=== PATIENT | male | born 1985 | race Caucasian/White ===

== ENCOUNTER 2024-12-24 17:04 | Emergency (ER) | payer OTHER ==
[~2024-12-24] VITALS: Ht 177.8 cm; Wt 92.2 kg
--- NOTE | 2024-12-24 17:40 | ELECTROCARDIOGRAPH REPORT ---
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
--- NOTE | 2024-12-24 17:41 | Physician Documentation ---
History of Present Illness ~ Chief Complaint: Chest Pain Stated Complaint: LETHARGIC Time Seen by MD: 19:20 HPI Patient presents to the emergency room with unusual feeling since he woke up this morning. He does note that he went to bed last night and did toss and turn which is very unusual for him and it took him a proximally 45 minutes to fall asleep. This morning when he woke up he had an unusual hot feeling in his neck and a feeling of chest tightness and he states it felt almost like a panic attack however he had this disc associated feeling with his thought process. Since that time symptoms have improved but have persisted and he looked it up on the computer and spoke with his significant other who directed him to go to the emergency room to be evaluated. He denies any chest pain but does describe tightness. She denies one-sided leg pain. No new medications or supplements. Medication Reconciliation Allergies: Coded Allergies: No Known Allergies (Unverified , 12/24/24) Scheduled Buprenorphine Hcl/Naloxone Hcl (Suboxone 4 Mg-1 Mg Sl Film), 0.25 STRIP SL ONCE, (Reported) Trazodone HCl (Trazodone HCl), 1 TAB PO HS, (Reported) Review of Systems ROS All review of systems negative except as per HPI Physical Exam Vital Signs: Temperature: 99.9, Source: Temporal, Heart Rate: 113, Respiratory Rate: 18, BP: 146/95, Pulse Oximetry: 96, Weight: 92.200 Oxygen Flow Rate: 0 Physical Exam General: Patient is awake, alert, oriented x4 in no acute distress and well appearing.~ Head: Normocephalic and atraumatic. Eyes: Conjunctival normal. EOMI. PERRL. ENT: Mucous membranes moist. Neck: Supple, trachea is midline. Chest: Clear to auscultation bilaterally without rales, rhonchi, or wheezes. There is no accessory muscle use or retractions. Cardiac: Heart rate 86 and regular without murmurs, gallops, or rubs. Abd: Soft, nondistended, nontender, with normoactive bowel sounds. No guarding, rebound, or rigidity. Extremities: Normal strength. Normal range of motion. No deformities or edema. No calf tenderness to palpation Progress Results/Orders Results/Orders Vital Signs 12/24/24 12/24/24 12/24/24 12/24/24 17:23 18:26 19:45 19:47 Temp 99.9 Pulse 113 86 Resp 18 16 15 B/P (MAP) 146/95 144/80 (101) Pulse Ox 96 99 99 O2 Delivery Room Air* O2 Flow Rate 0 0 FiO2 21 Laboratory Tests Test 12/24/24 17:49 12/24/24 18:38 12/24/24 19:23 CBC Comment Sodium Level 138 Potassium Level 3.6 Chloride Level 103 Carbon Dioxide Level 27.6 Anion Gap 7 L Blood Urea Nitrogen 20 H Creatinine 1.36 H Estimated GFR/1.73 m2 58 BUN/Creatinine Ratio 14.7 Glucose Level 133 H Calcium Level 8.5 Troponin I High Sensitivity 6 6 Pro-B-Type Natriuretic Peptide < 30 Albumin 3.8 Chemistry Comments White Blood Count 8.6 Red Blood Count 5.18 Hemoglobin 15.1 Hematocrit 45.4 Mean Corpuscular Volume 87.6 Mean Corpuscular Hemoglobin 29.2 Mean Corpuscular Hemoglobin Concent 33.3 Red Cell Distribution Width 14.2 Platelet Count 233 Mean Platelet Volume 8.4 Neutrophils (%) (Auto) 68.5 Lymphocytes (%) (Auto) 16.6 L Monocytes (%) (Auto) 9.9 Eosinophils (%) (Auto) 4.3 Basophils (%) (Auto) 0.7 Neutrophils # (Auto) 5.9 Lymphocytes # (Auto) 1.4 Monocytes # (Auto) 0.9 Eosinophils # (Auto) 0.4 Basophils # (Auto) 0.1 Troponin I High Sens Percent Delta 0 Troponin I Hi Sens Absolute Change 0 EKG/XRAY/CT/US/VASC/MRI EKG : Additional Comment EKG interpreted by myself shows time of 1735, rate 105, sinus tachycardia, normal axis, abnormal T-waves in anterior leads without reciprocal changes. Chest X-Ray : Additional Comments Exam: CHEST,SINGLE VIEW CHEST RADIOGRAPH Indication: CP Technique: Single frontal view of the chest was obtained COMPARISON: None FINDINGS: Lines and Tubes: None Lungs: Clear Pleura: No effusion. No pneumothorax. Cardiomediastinal contours: Unremarkable Bones: Unremarkable IMPRESSION: 1. No acute disease. Medical Decision Making Findings Patient presents to the emergency room with chest tightness and unusual feeling as per HPI. Patient does have history of anxiety. Differential diagnosis includes but not limited to ACS, pulmonary embolism, anxiety, cardiac arrhythmia therefore emergent labs and imaging indicated. Chest x-ray is reassuring as his EKG. Workup is reassuring including troponins negative x2. No calf tenderness, no hypoxia and tachycardia upon arrival has resolved and he had not feel he requires investigation into possible pulmonary embolism or aortic pathology. I suspect patient is suffering from some degree of anxiety. He has been instructed to follow up with his doctor. Patient with heart score of 0 Departure Disposition: 01 HOME / SELF CARE / HOMELESS Impression: Primary Impression: Chest pain Condition: Stable Discharge Instructions: Nonspecific Chest Pain, Adult Additional Instructions: He needs to follow up with your doctor. Your kidney function isn't as strong as most Meniere age. Double your water consumption. Refrain from NSAID use like ibuprofen and a leave and have these labs rechecked by your primary care doctor. Unknown cause for your symptoms today. All workup including cardiologic workup was reassuring. Referrals: NO PRIMARY CARE PROVIDER (PCP) Additional Comment Medical Screen Exam History: This is a 39-year-old male who presents with sternal nonradiating chest pressure described as pressure onset this morning upon waking, patient reports he had associated nausea and vomiting, patient additionally reports it feeling of lightheadedness and tunnel vision. Reports symptoms have decreased though still experiencing chest tightness and had in his. Exam: VITALS: Reviewed and as above. GENERAL: Alert, nontoxic appearing, no apparent distress. RESPIRATORY: No increased work of breathing, no respiratory distress, speaking in full clear sentences MSE performed in triage and patient returned to ED lobby by nursing staff to await available ED room, ACS workup initiated by nursing staff per protocol The note accurately reflects work and decisions made by me.ANTOINETTE Stone 12/24/24 17:41 Signature Scribe Signature: No scribe Attestation: The note accurately reflects work and decisions made by me.Hua Granda MD 12/24/24 20:04 DANIEL GARCIA Dec 24, 2024 17:41 HUA GRANDA MD Dec 24, 2024 20:00
--- NOTE | 2024-12-24 17:58 | RADIOLOGY REPORT ---
CHEST RADIOGRAPH Indication: CP Technique: Single frontal view of the chest was obtained COMPARISON: None FINDINGS: Lines and Tubes: None Lungs: Clear Pleura: No effusion. No pneumothorax. Cardiomediastinal contours: Unremarkable Bones: Unremarkable IMPRESSION: 1. No acute disease.
[2024-12-24 18:34] LABS: ALBUMIN 3.8 G/DL (3.4-5.0); ANION GAP 7 (8-16); BLOOD UREA NITROGEN 20 MG/DL (7-18); BUN/CREATININE RATIO 14.7 (10.0-20.0); CALCIUM 8.5 MG/DL (8.5-10.1); CHLORIDE 103 MMOL/L (99-107); CREATININE 1.36 MG/DL (0.60-1.10); GLUCOSE 133 MG/DL (70-104); POTASSIUM 3.6 MMOL/L (3.5-5.1); PRO BRAIN NATRIURETIC PEPTIDE < 30 PG/ML (0-125); SODIUM 138 MMOL/L (135-145); TOTAL CARBON DIOXIDE 27.6 MMOL/L (24-32); eCRCL 75 ML/MIN; eGFR 58 ML/MIN
[2024-12-24 19:26] LABS: BASOPHILS # (AUTO) 0.1 X10'3 (0-0.2); BASOPHILS % (AUTO) 0.7 % (0-1); EOSINOPHILS # (AUTO) 0.4 X10'3 (0-0.9); EOSINOPHILS % (AUTO) 4.3 % (0-6); HEMATOCRIT 45.4 % (42.0-52.0); HEMOGLOBIN 15.1 g/dl (14.0-17.9); LYMPHOCYTES # (AUTO) 1.4 X10'3 (1.1-4.8); LYMPHOCYTES % (AUTO) 16.6 % (21-51); MEAN CORPUSCULAR HEMOGLOBIN 29.2 PG (27.0-31.0); MEAN CORPUSCULAR HGB CONC 33.3 g/dL (33.0-36.5); MEAN CORPUSCULAR VOLUME 87.6 FL (78-98); MEAN PLATELET VOLUME 8.4 FL (7.4-10.4); MONOCYTES # (AUTO) 0.9 X10'3 (0-0.9); MONOCYTES % (AUTO) 9.9 % (2-12); NEUTROPHILS # (AUTO) 5.9 X10'3 (1.8-7.7); NEUTROPHILS % (AUTO) 68.5 % (42-75); PLATELET COUNT 233 X10'3 (140-440); RED BLOOD COUNT 5.18 X10'6 (4.70-6.10); RED CELL DISTRIBUTION WIDTH 14.2 % (11.5-14.5); WHITE BLOOD COUNT 8.6 X10'3 (4.5-11.0)
[2024-12-24] MEDS ORDERED: BUPR1FIL5 SL (19:46)
[2024-12-24] MEDS ORDERED: TRAZ-251 PO (19:46)
[2024-12-24 20:25] VITALS: BP 133/73; PULSE 93; RESP 12; TEMP 98.7; O2SAT 99
== END 2024-12-24 20:18 | disposition home or self-care (01) ==
LOC: ER 17:06
DX: R07.89 Other chest pain (principal); R11.2 Nausea with vomiting, unspecified; R42 Dizziness and giddiness; R06.02 Shortness of breath
CPT/HCPCS: 36415; 71045; 80048; 83880; 84484; 85025; 93005; 99285

== ENCOUNTER 2025-02-16 13:15 | Emergency (ER) | payer OTHER ==
[~2025-02-16] VITALS: Ht 177.8 cm; Wt 91.7 kg
[~2025-02-16 13:15] MED LIST: BUPR1FIL5 SL; TRAZ-251 PO
[2025-02-16 13:40] VITALS: TEMP 97.8
--- NOTE | 2025-02-16 13:46 | ELECTROCARDIOGRAPH REPORT ---
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
[2025-02-16 13:56] LABS: MEAN PLATELET VOLUME 7.3 FL (7.4-10.4); RED CELL DISTRIBUTION WIDTH 13.5 % (11.5-14.5)
--- NOTE | 2025-02-16 14:09 | RADIOLOGY REPORT ---
AP portable chest CLINICAL INDICATION: CP Comparison: 12/24/2024 FINDINGS: Heart size is normal. No infiltrates or effusions. No bony thoracic abnormalities. IMPRESSION: 1. No acute cardiopulmonary pathology
[2025-02-16 14:19] LABS: CREATININE 0.90 MG/DL (0.60-1.10); PRO BRAIN NATRIURETIC PEPTIDE < 30 PG/ML (0-125); TOTAL CARBON DIOXIDE 26.1 MMOL/L (24-32); eCRCL 113 ML/MIN; eGFR > 90 ML/MIN
--- NOTE | 2025-02-16 16:02 | Physician Documentation ---
History of Present Illness ~ Chief Complaint: Anxiety Stated Complaint: MEDICATION INTERACTION Time Seen by MD: 13:53 HPI 39-year-old male presents to the ED with a complaint of anxiety after taking trazodone in another supplement yesterday evening. He states that he lost his mom the year ago and has increased anxiety in his recent history of panic attacks. Denies any SI HI but states he feels like his heart is racing for unexplained reasons he has also had increased concerns about his health. Day of Onset: Feb 16, 2025 Medication Reconciliation Allergies: Coded Allergies: No Known Allergies (Unverified , 02/16/25) Scheduled Buprenorphine Hcl/Naloxone Hcl (Suboxone 4 Mg-1 Mg Sl Film), 0.25 STRIP SL ONCE, (Reported) Hydroxyzine Hcl* (Atarax*), 1 TAB PO Q8H Trazodone HCl (Trazodone HCl), 1 TAB PO HS, (Reported) Review of Systems All Other Systems at this time: Reviewed and Negative ROS As stated above in the HPI, otherwise all systems are reviewed and negative. Physical Exam Vital Signs: Temperature: 97.8, Source: Temporal, Heart Rate: 105, Respiratory Rate: 18, BP: 147/95, Pulse Oximetry: 97, Weight: 91.700 Physical Exam General: Alert, no apparent distress. Extremities: Normal range of motion, no deformity. Neurologic: Oriented x4. Psychiatric: Patient is anxious appearing Skin: Normal color, warm and dry. No edema, no ecchymosis. Progress Results/Orders Results/Orders Orders - PRABHU JO AUDIT CONSULTANT Chest,Single View (02/16/25 13:40) Monitor (02/16/25 13:40) Saline Lock (02/16/25 13:40) Oxygen (02/16/25 13:40) Completed Orders - PRABHU JO AUDIT CONSULTANT Chest,Single View (02/16/25 13:40) Cbc/Diff (02/16/25 13:40) BMP (02/16/25 13:40) PBNP (02/16/25 13:40) Electrocardiogram (02/16/25 13:40) Hs Troponin I W Calculations (02/16/25 13:40) Hs Troponin I W Calculations (02/16/25 15:40) Diazepam Tablet (Valium Tablet) (02/16/25 16:00) Vital Signs 02/16/25 02/16/25 13:40 16:50 Temp 97.8 Pulse 105 99 Resp 18 18 B/P (MAP) 147/95 155/90 Pulse Ox 97 98 Laboratory Tests Test 02/16/25 13:48 02/16/25 15:53 White Blood Count 10.5 Red Blood Count 5.65 Hemoglobin 16.8 Hematocrit 49.2 Mean Corpuscular Volume 87.0 Mean Corpuscular Hemoglobin 29.6 Mean Corpuscular Hemoglobin Concent 34.1 Red Cell Distribution Width 13.5 Platelet Count 249 Mean Platelet Volume 7.3 L Neutrophils (%) (Auto) 85.3 H Lymphocytes (%) (Auto) 9.5 L Monocytes (%) (Auto) 4.5 Eosinophils (%) (Auto) 0.3 Basophils (%) (Auto) 0.4 Neutrophils # (Auto) 9.0 H Lymphocytes # (Auto) 1.0 L Monocytes # (Auto) 0.5 Eosinophils # (Auto) 0.0 Basophils # (Auto) 0.0 CBC Comment Sodium Level 138 Potassium Level 4.1 Chloride Level 102 Carbon Dioxide Level 26.1 Anion Gap 10 Blood Urea Nitrogen 22 H Creatinine 0.90 Estimated GFR/1.73 m2 > 90 BUN/Creatinine Ratio 24.4 H Glucose Level 123 H Calcium Level 9.0 Troponin I High Sensitivity 4 5 Pro-B-Type Natriuretic Peptide < 30 Albumin 3.7 Chemistry Comments Troponin I High Sens Percent Delta 25 Troponin I Hi Sens Absolute Change 1 Medical Decision Making Findings Presents with a clinical indications for panic attack and/or anxiety. I believe this could be related to his recent mother's patient leading him to have issues and concerns over his own health. reports improved symptoms after medication. cleared for DC Differential Dx:Considerations: Include: Alcohol abuse, Anxiety, Bipolar disorder, Conversion disorder, Depression, Encephaloathy, Homicidal, Panic disorder, Personality disorder, Schizophrenia, Substance abuse, Suicidal, Other Departure Disposition: 01 HOME / SELF CARE / HOMELESS Impression: Primary Impression: Anxiety Additional Impression: Panic attack Condition: Stable Discharge Instructions: Panic Attack Referrals: NO PRIMARY CARE PROVIDER (PCP) Prescriptions Hydroxyzine Hcl* (Atarax*) 25 Mg Tablet 1 TAB PO Q8H for anxiety for 30 Days, #90 TAB Prov: PRABHU JO AUDIT CONSULTANT 02/16/25 Education Educated: Patient Educated regarding: diagnosis Signature Scribe Signature: radha Baileyation: Scribed for Prabhu Jo Np by Prabhu Lynn NP . 02/16/25 16:01 PRABHU JO NP Feb 16, 2025 16:02
[2025-02-16] MEDS ORDERED: HYDR-3686 PO (16:12)
[2025-02-16 16:50] VITALS: BP 155/90; PULSE 99; RESP 18; O2SAT 98
== END 2025-02-16 17:00 | disposition home or self-care (01) ==
LOC: ER 13:16
DX: F41.0 Panic disorder [episodic paroxysmal anxiety] (principal); Z79.899 Other long term (current) drug therapy
CPT/HCPCS: 36415; 71045; 80048; 83880; 84484; 85025; 93005; 99285